=== PATIENT | male | born 1960 | race Caucasian/White ===

== ENCOUNTER 2022-03-02 08:19 | Day surgery (SDC) | payer SELFPAY ==
[~2022-03-02] VITALS: Ht 170.2 cm; Wt 79.4 kg
[2022-03-02 12:44] VITALS: BP 129/79
== END 2022-03-02 12:15 | disposition home or self-care (01) | DRG 395 ==
LOC: ORM 08:19
PROVIDERS: ATTEND Surgery
PROC: 0DBN8ZX Excision of Sigmoid Colon, Via Natural or Artificial Opening Endoscopic, Diagnostic (ICD-10-PCS; principal; 2022-03-02)
PROC: 3E0H8GC Introduction of Other Therapeutic Substance into Lower GI, Via Natural or Artificial Opening Endoscopic (ICD-10-PCS; 2022-03-02)
DX: D12.5 Benign neoplasm of sigmoid colon (principal)